=== PATIENT | male | born 1980 | race Caucasian/White ===

== ENCOUNTER 2018-11-20 18:12 | Emergency (ER) | payer OTHER ==
[~2018-11-20] VITALS: Ht 177.8 cm; Wt 138.3 kg
[~2018-11-20 18:12] MED LIST: BACTRIM DS TAB1 EACH PO; BENTYL 20 MG TA20 M1 PO; FIBER GUMMIES2.5 GM PO; HYDROCODONE-AP1 EAC6 PO; LIDODERM 5%1 PATC1 TOP; MEDROLDOSEPACK PO; NOHOMEMEDICATIONS; NORCO 5-325 TA1 EACH PO; SENOKOT-S1 TA1 PO; TRAMADOL 50 MG50 MG PO; XANAX 0.5 MG0.5 MG PO; ZANAFLEX4 MG PO
[2018-11-20 19:00] LABS: ABSOLUTE BASOPHILS 0.1 thou/uL (0.0-0.2); ABSOLUTE EOSINOPHILS 0.2 thou/uL (0.0-0.7); ABSOLUTE LYMPHOCYTES 2.6 thou/uL (0.8-5.3); ABSOLUTE MONOCYTES 0.7 thou/uL (0.0-1.2); ABSOLUTE NEUTROPHILS 9.3 thou/uL (1.6-8.1); BASOPHILS 1.1 %; EOSINOPHILS 1.5 %; HEMATOCRIT 44.6 % (42.0-52.0); HEMOGLOBIN 15.5 gm/dL (14.0-18.0); MCH 31.3 pg (26.0-34.0); MCHC 34.7 g/dL (28.0-37.0); MCV 90.2 fL (80.0-100.0); MONOCYTES 5.6 %; MPV 9.3 fl. (7.2-11.1); NUCLEATED RBCS 0 /100WBC; PLATELET COUNT* 384 thou/uL (150-400); POLYS 71.8 %; RBC 4.95 mil/uL (4.50-6.00); RDW-CV 13.1 % (10.5-14.5); WBC 12.9 thou/uL (4.0-11.0)
[2018-11-20 19:06] LABS: URINE BILIRUBIN NEGATIVE (Negative); URINE BLOOD NEGATIVE (Negative); URINE CLARITY CLEAR; URINE COLOR YELLOW; URINE GLUCOSE-RANDOM NEGATIVE (Negative); URINE KETONES NEGATIVE (Negative); URINE LEUKOCYTES-REFLEX NEGATIVE (Negative); URINE NITRITE-REFLEX NEGATIVE (Negative); URINE PROTEIN NEGATIVE (Negative); URINE SPECIFIC GRAVITY <= 1.005 (1.005-1.030); URINE UROBILINOGEN 0.2 E.U./dl (0.2-1.0)
[2018-11-20 19:11] LABS: ALBUMIN 3.6 g/dL (3.4-5.0); CALCIUM 9.1 mg/dL (8.5-10.1); POTASSIUM 3.9 mmol/L (3.5-5.1); TOTAL BILIRUBIN 0.3 mg/dL (<0.1-1.0); TOTAL PROTEIN 8.1 g/dL (6.4-8.2)
[2018-11-20] MEDS ORDERED: NORCO 5-325 TA1 EACH PO (20:32)
[2018-11-20 20:45] VITALS: BP 176/103
== END 2018-11-20 20:46 | disposition home or self-care (01) ==
LOC: M.ERS 18:12
PROVIDERS: Physician Assistant
DX: R10.32 Left lower quadrant pain (principal); R10.84 Generalized abdominal pain; K62.89 Other specified diseases of anus and rectum; F31.9 Bipolar disorder, unspecified; K59.09 Other constipation; Z88.5 Allergy status to narcotic agent

== ENCOUNTER 2018-12-12 16:03 | Inpatient (IN) | payer OTHER ==
[~2018-12-12] VITALS: Ht 177.8 cm; Wt 127.9 kg
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
[2018-12-12 16:15] VITALS: BP 150/105
[2018-12-12 16:42] LABS: ABSOLUTE BASOPHILS 0.1 thou/uL (0.0-0.2); ABSOLUTE EOSINOPHILS 0.3 thou/uL (0.0-0.7); ABSOLUTE MONOCYTES 1.3 thou/uL (0.0-1.2); ABSOLUTE NEUTROPHILS 11.9 thou/uL (1.6-8.1); BASOPHILS 0.3 %; EOSINOPHILS 2.1 %; HEMATOCRIT 44.1 % (42.0-52.0); HEMOGLOBIN 14.9 gm/dL (14.0-18.0); LYMPHOCYTES 12.7 %; MCH 30.3 pg (26.0-34.0); MCHC 33.7 g/dL (28.0-37.0); MCV 89.9 fL (80.0-100.0); MONOCYTES 8.4 %; MPV 9.1 fl. (7.2-11.1); NUCLEATED RBCS 0 /100WBC; PLATELET COUNT* 451 thou/uL (150-400); POLYS 76.5 %; RDW-CV 13.3 % (10.5-14.5); WBC 15.6 thou/uL (4.0-11.0)
[2018-12-12 16:55] LABS: ALBUMIN 3.3 g/dL (3.4-5.0); CALCIUM 9.3 mg/dL (8.5-10.1); CREATININE 1.1 mg/dL (0.6-1.3); POTASSIUM 4.3 mmol/L (3.5-5.1); TOTAL BILIRUBIN 0.6 mg/dL (<0.1-1.0); TOTAL PROTEIN 8.4 g/dL (6.4-8.2)
[2018-12-12 17:13] LABS: URINE BILIRUBIN NEGATIVE (Negative); URINE BLOOD NEGATIVE (Negative); URINE CLARITY CLEAR; URINE COLOR YELLOW; URINE GLUCOSE-RANDOM NEGATIVE (Negative); URINE KETONES NEGATIVE (Negative); URINE LEUKOCYTES-REFLEX NEGATIVE (Negative); URINE NITRITE-REFLEX NEGATIVE (Negative); URINE PROTEIN NEGATIVE (Negative); URINE SPECIFIC GRAVITY <= 1.005 (1.005-1.030); URINE UROBILINOGEN 0.2 E.U./dl (0.2-1.0)
[2018-12-12 20:09] VITALS: BP 126/64
[2018-12-12 20:20] VITALS: BP 134/78
[2018-12-13 00:51] VITALS: BP 115/67
[2018-12-13 03:06] VITALS: BP 114/66
[2018-12-13 04:20] LABS: HEMATOCRIT 37.1 % (42.0-52.0); MCH 30.2 pg (26.0-34.0); MCHC 33.2 g/dL (28.0-37.0); MCV 90.8 fL (80.0-100.0); MPV 8.8 fl. (7.2-11.1); RBC 4.08 mil/uL (4.50-6.00)
--- NOTE | 2018-12-13 04:29 | NUR ---
RECEIVED REPORT AND ASSUMED CARE OF PATIENT FROM ER AT APPROX 2009. RECORD MAKER APPLIED AND TRACING SR. ADMISSION HISTORY AND ASSESSMENT COMPLETED CHARTED, VSS ON ROOM AIR. PATIENT HAS PERIRECTAL CELLITIS, PICTURES TAKEN AND WOUND CONSULT PLACED. PATIENT HAS C/O PAIN IN PERIRECTAL AREA. GOAL OF EFFECTIVE PAIN MANAGEMENT HAS BEEN PARTIALLY MET. PAIN PARTIALLY RELIEVED WITH MEDICATION PER MAR, ICE PACKS, AND REPOSITIONING. NPO FOR SURGERY CONSULT. PATIENT AWARE AND VERBALIZES UNDERSTANDING. CALL LIGHT WITHIN REACH.
[2018-12-13 04:48] LABS: ALBUMIN 2.4 g/dL (3.4-5.0); CALCIUM 8.1 mg/dL (8.5-10.1); HEMOGLOBIN 12.3 gm/dL (14.0-18.0); MAGNESIUM 1.9 mg/dL (1.8-2.4); POTASSIUM 4.2 mmol/L (3.5-5.1); TOTAL BILIRUBIN 0.3 mg/dL (<0.1-1.0); TOTAL PROTEIN 6.4 g/dL (6.4-8.2)
[2018-12-13 07:30] VITALS: BP 106/60
--- NOTE | 2018-12-13 10:22 | EKG ---
[place] [address] ELECTROCARDIOGRAM REPORT Name: MARK GOULD Room: [address] ADM IN .R.#: [id number] Admission: 12/12/18 Attend Phys: Cheyenne Stokes MD Discharge: Date of : 82 Report #: [id number] THIS REPORT FOR: //name// [facility] ED Test Date: 2018-12-12 Test Time: 18:11:06 Pat Name: MARK GOULD Department: Room: [facility] Gender: M [employer]: : 1980 Requested By: Clarence Joya Order Number: [id number] MD: Paresh Salazar Measurements Intervals [place] Rate: 97 P: 48 W[place]: 164 QRS: 27 QRSD: 85 T: 22 QT: 323 QTc: 411 Interpretive Statements Sinus rhythm Compared to ECG 02/02/2016 22:45:04 Sinus tachycardia no longer present Electronically Signed On 12-13-2018 10:21:50 CDT by Paresh Salazar [email or web address] <ELECTRONICALLY SIGNED> By: Paresh Salazar MD, [facility] 12/13/18 1021 10 10 Paresh Salazar MD, FAC /EPI
--- NOTE | 2018-12-13 11:57 | NUR ---
Pt is A&O. Resides at home with his and dtr. Active and independent. Pt stated that he had [place] TYS[place], but it has lapsed, has faxed updated info to [facility] to attempt to get it reinstated. No DME. No hx of HH or SNF. Goal is home at [place]. Following.
[2018-12-13 12:02] VITALS: BP 121/64
[2018-12-13] MEDS ORDERED: PROCTOFOAM-HC F10 GM TOP (12:32)
[2018-12-13 13:09] LABS: AMP/METHAMP Negative (Negative); BARBITURATES Negative (Negative); BENZODIAZEPINES Negative (Negative); COCAINE Negative (Negative); METHADONE Negative (Negative); OPIATES POSITIVE (Negative); PCP Negative (Negative); THC POSITIVE (Negative)
[2018-12-13 15:23] VITALS: BP 120/65
[2018-12-13 20:00] VITALS: BP 144/83
--- NOTE | 2018-12-13 23:30 | NUR ---
RECEIVED REPORT AND ASSUMED CARE OF PATIENT AT APPROX 1930. ASSESSMENT AND VITAL COMPLETED CHARTED, VSS. PATIENT A&OX4. C/O PAIN IN RECTAL AREA WHERE CELLULITIS IS. PAIN PARTIALLY RELIEF WITH MEDS PER MAR, COLD, AND REPOSITIONING. ONE SET OF BLOOD CULTURES BACK WITH GRAM POSITIVE COCCI. RESULTS CALLED TO INFECTIOUS DISEASE ANSWERING SERVICE. NO CALL BACK OR ORDERS RECIEVED AT THIS TIME. VANCOMYCIN INCREASED PER PHARMACY FOR LOW TROUGH AND FEVERS THIS EVENING. FEVER TREATED WITH ACETAMINOPHEN. PATIENT TRANSPORTED TO ORTHO UNIT VIA BED WITH ALL BELONGINGS. REPORT GIVEN TO RECEIVING RN.
[2018-12-14 00:30] VITALS: BP 118/61
[2018-12-14 04:17] LABS: HEMATOCRIT 35.6 % (42.0-52.0); HEMOGLOBIN 12.1 gm/dL (14.0-18.0); MCH 30.3 pg (26.0-34.0); MCHC 33.9 g/dL (28.0-37.0); MCV 89.2 fL (80.0-100.0); MPV 8.9 fl. (7.2-11.1); NUCLEATED RBCS 0 /100WBC; PLATELET COUNT* 328 thou/uL (150-400); RBC 3.99 mil/uL (4.50-6.00); RDW-CV 12.8 % (10.5-14.5); WBC 14.4 thou/uL (4.0-11.0)
[2018-12-14 04:37] LABS: CALCIUM 8.1 mg/dL (8.5-10.1); CREATININE 0.9 mg/dL (0.6-1.3)
--- NOTE | 2018-12-14 05:19 | NUR ---
REPORT RECIEVED FROM ROSIBEL ALBERTO, PT MOVED TO ROOM 102 AT 2300. CHARTING REVIEW, I AGREE WITH ROSIBEL ALBERTO'S DOCUMENTATION. PT SLEPT ON AND OFF THIS SHIFT. PAIN AND NAUSEA MEDS GIVEN PER E-OCT. IV'S PATENT, FLUIDS INFUSING. WILL CONTINUE WITH PLAN OF CARE.
[2018-12-14 06:23] LABS: ABSOLUTE EOSINOPHILS 0.1 thou/uL (0.0-0.7); ABSOLUTE LYMPHOCYTES 1.2 thou/uL (0.8-5.3); ABSOLUTE NEUTROPHILS 11.1 thou/uL (1.6-8.1); ANISOCYTOSIS 1+; PLATELET ESTIMATE ADEQUATE; POIKILOCYTOSIS 1+
[2018-12-14 08:00] VITALS: BP 141/72
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
--- NOTE | 2018-12-14 13:01 | NUR ---
WOUND CARE NOTE: CONSULT RECEIVED FOR PERIRECTAL CELLULITIS. WILL DEFER ASSESSMENT AT THIS TIME, APPEARS THAT SURGICAL INTERVENTION IS PLANNED. PLEASE NOTIFY IF ANYTHING IS NEEDED IN THE INTERIM.
[2018-12-14 17:03] VITALS: BP 130/62
--- NOTE | 2018-12-14 18:02 | NUR ---
PATIENT IS ALERT AND ORIENTED X 4. IVF LAC INFUSING @ 100 MLS/HR. IV SITE RAC-PATENT. NPO FOR SURGICAL PROCEDURE FOR GLUTEAL ABSCESS. COLOSTOMY WITH MINIMAL STOOL OUTPUT NOTED. CONSULT WITH GI IN AM. PT TO PROCEDURE BY BED @ 1245. RETURNED TO UNIT @ 1500. PT DID NOT WANT TO HAVE LAXITIVE MEDICATION TODAY FOR COLOSTOMY AFTER SURGICAL PROCEDURE. PAIN MANAGED WITH IV FENTANYL DURING SHIFT. GAUZE AND ABD PAD CHANGED @ 1745 DUE TO FOUL SMELLING SEROSANGUINEOUS DRAINAGE PRESENT. HOURLY ROUNDS MAINTAINED. SPOUSE @ BEDSIDE. CALL LIGHT WITHIN REACH.
[2018-12-14 20:30] VITALS: BP 134/71
[2018-12-15] VITALS: BP 143/94
[2018-12-15 04:00] VITALS: BP 127/83
--- NOTE | 2018-12-15 05:42 | NUR ---
PT SLEPT ON AND OFF THIS SHIFT. ASSESSMENT DOCUMENTED. MEDS GIVEN PER -OCT. IV'S PATENT, ABX INFUSED. PAIN MEDS GIVEN PER E-OCT. GAUZE OVER THANG AREA INCISION CHANGED SEVERAL TIMES THIS SHIFT, PACKING REMAINING IN PLACE. PT C/O SWEATING A LOT AND FEELING COLD AND CLAMMY, NO FEVER NOTED; SHEETS, BLANKETS, AND PILLOW CASES CHANGED THIS SHIFT D/T SWEATING. BLOOD SUGAR CHECKED, PT STATES HE DOES NOT DRINK, WILL CONTINUE TO MONITOR FOR OTHER SYMPTOMS. NO REPORTS OF NAUSEA THIS SHIFT. WILL CONTINUE WITH PLAN OF CARE.
[2018-12-15 08:50] VITALS: BP 109/66
[2018-12-15 11:47] LABS: HEMATOCRIT 37.2 % (42.0-52.0); HEMOGLOBIN 12.3 gm/dL (14.0-18.0); MCH 29.9 pg (26.0-34.0); MCHC 33.1 g/dL (28.0-37.0); MCV 90.3 fL (80.0-100.0); MPV 9.5 fl. (7.2-11.1); RBC 4.12 mil/uL (4.50-6.00); WBC 14.2 thou/uL (4.0-11.0)
[2018-12-15 11:59] LABS: POTASSIUM 3.7 mmol/L (3.5-5.1)
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
[2018-12-15 15:43] VITALS: BP 144/95
--- NOTE | 2018-12-15 16:08 | NUR ---
PATIENT REPOSITIONED IN BED, 4X4'S TO PERORECTAL ABCESS CHANGED X 2 THIS SHIFT DUE TO SOILING. PRN FENTANYL, TORADOL, AND VICODIN GIVEN FOR PAIN ORDERED. VOIDING PER URINAL. PER SURGERY MAG CITRATE ORDERED, PRIOR TO GIVING PATIENT HAD A VERY LARGE FORMED STOOL VIA COLOSTOMY, SO PATIENT IS REFUSING MAG CITRATE. PAGE PLACED TO DR. MOY, AWAITING CALL BACK. 2ND IV STARTED TO RIGHT FOREARM BY SOCIAL WELFARE CLERK, PATIENT ON MULT ABX. PATIENT DID GET OUT OF BED AND STAND UP AT BEDSIDE, REFUSING TO SIT IN RECLINER. PATIENT ALSO REFUSING SCD'S, EDUCATION GIVEN.
[2018-12-15 21:20] VITALS: BP 132/75
[2018-12-16 03:56] LABS: HEMATOCRIT 34.6 % (42.0-52.0); HEMOGLOBIN 11.6 gm/dL (14.0-18.0); MCH 30.1 pg (26.0-34.0); MCHC 33.4 g/dL (28.0-37.0); MPV 9.1 fl. (7.2-11.1); RBC 3.84 mil/uL (4.50-6.00); RDW-CV 13.1 % (10.5-14.5); WBC 14.4 thou/uL (4.0-11.0)
[2018-12-16 04:00] VITALS: BP 108/64
[2018-12-16 04:23] LABS: CALCIUM 8.2 mg/dL (8.5-10.1); MAGNESIUM 2.2 mg/dL (1.8-2.4); PHOSPHORUS* 3.4 mg/dL (2.5-4.9); POTASSIUM 3.8 mmol/L (3.5-5.1)
--- NOTE | 2018-12-16 06:50 | NUR ---
PATIENT HAS SLEPT OFF AND ON DURING THE NIGHT. VSS ON RA. MEDICATIONS GIVEN ORDERED AND CHARTED. PATIENT REFUSED TO HAVE PACKING CHANGED DURING THE SHIFT AND STATED THAT IT WAS CHANGED YESTERDAY AND HE FELT IT WAS STILL FINE AT THIS TIME. COLOSTOMY INTACT WITH SMALL AMOUNT OF STOOL. IV IN RIGHT FOREARM-SL. IV ABT'S GIVEN WITHOUT ANY ADVERSE SIDE EFFECTS NOTED. PATIENT INSTRUCTED TO USE CALL LIGHT WHEN NEEDING ASSISTANCE. HOURLY ROUNDS MADE. WILL CONTINUE WITH PLAN OF CARE AND NURSING TO MONITOR.
[2018-12-16 07:20] VITALS: BP 121/75
--- NOTE | 2018-12-16 16:06 | NUR ---
PATIENT UP AND SHOWERED THIS AM. PACKING WAS REPLACED BY SURGERY THIS AM. PRN FENTANYL/TORADOL/VICODIN GIVEN FOR PAIN. PATIENT UP AMBULATING IN THE HALLS MULTIPLE TIMES TODAY, FAIR ENDURANCE NOTED. IV RESTARTED TO LEFT FOREARM, SCHED ABX INFUSING ORDERED. COLOSTOMY APPLIANCE CHANGED THIS AFTERNOON, NOTED TO BE LEAKING. PATIENT HERE THIS EVENING.
[2018-12-16 16:44] VITALS: BP 116/63
[2018-12-16 20:00] VITALS: BP 140/79
[2018-12-17 04:16] LABS: HEMATOCRIT 34.9 % (42.0-52.0); HEMOGLOBIN 11.8 gm/dL (14.0-18.0); MCH 30.4 pg (26.0-34.0); MCHC 33.9 g/dL (28.0-37.0); MCV 89.7 fL (80.0-100.0); RBC 3.89 mil/uL (4.50-6.00); RDW-CV 13.2 % (10.5-14.5); WBC 11.5 thou/uL (4.0-11.0)
[2018-12-17 04:37] LABS: CALCIUM 8.3 mg/dL (8.5-10.1); CREATININE 1.4 mg/dL (0.6-1.3); POTASSIUM 3.9 mmol/L (3.5-5.1)
--- NOTE | 2018-12-17 06:01 | NUR ---
PATIENT HAS SLEPT WELL THROUGHOUT MOST OF THE NIGHT. VSS ON RA. PAIN CONTROLLED WITH IV AND ORAL PAIN MEDICATIONS AND CHARTED. PATIENT HAS BEEN UP AMBULATING SOME DURING THE SHIFT. COLOSTOMY INTACT. DRESSING TO PERIRECTAL AREA IN PLACE WITH SMALL AMOUNT OF DRAINAGE NOTED. IV IN LEFT FOREARM-SL. IV ABT'S GIVEN ORDERED AND NO ADVERSE SIDE EFFECTS NOTED. PATIENT HAS REMAINED A-FEBRILE. PATIENT INSTRUCTED TO USE CALL LIGHT WHEN NEEDING ASSISTANCE. HOURLY ROUNDS MADE. WILL CONTINUE WITH PLAN OF CARE AND NURSING TO MONITOR.
[2018-12-17 07:45] VITALS: BP 121/85
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
--- NOTE | 2018-12-17 14:48 | NUR ---
FAXED FACE SHEET TO JAMES[facility]BART PINA TO SEE IF SHE COULD CHECK WITH [place] MEDICAID TO SEE IF PT.S [place] MEDICAID IS ACTIVE. PTS SENT IN PAPER WORK TO GET PTS MEDICAID REINSTATED.
[2018-12-17 16:15] VITALS: BP 132/78
--- NOTE | 2018-12-17 16:24 | NUR ---
PATIENT UP TO SHOWER THIS EVENING, SURGERY HERE TO CHANGE PACKING. PRN VICODIN GIVEN X 2 THIS SHIFT. IV ABX INFUSED ORDERED, MALINDA FROM INFUSION HERE THIS EVENING TO START IV, PLACED IN RIGHT FOREARM. PATIENT C/O PAIN IN PREVIOUS IV SITE. UP AMBULATING AROUND ROOM AND IN HALLS FREQUENTLY. AWAITING WOUND CULTURES.
[2018-12-17 20:00] VITALS: BP 138/79
[2018-12-18 07:18] LABS: HEMATOCRIT 33.4 % (42.0-52.0); HEMOGLOBIN 11.2 gm/dL (14.0-18.0); MCH 30.1 pg (26.0-34.0); MCHC 33.5 g/dL (28.0-37.0); MCV 89.8 fL (80.0-100.0); MPV 8.4 fl. (7.2-11.1); RBC 3.72 mil/uL (4.50-6.00); RDW-CV 13.2 % (10.5-14.5); WBC 10.2 thou/uL (4.0-11.0)
[2018-12-18 07:27] LABS: CALCIUM 8.3 mg/dL (8.5-10.1); CREATININE 1.4 mg/dL (0.6-1.3); POTASSIUM 3.8 mmol/L (3.5-5.1)
--- NOTE | 2018-12-18 07:32 | NUR ---
Alert and oriented x 4. He has been cooperative. He did have 4x4's on outer dressing to rectum changed x 1. He has had 1 hydrocodone for pain x 3 this shift. He is up independently to the bathroom, he is doing his own colostomy care. IV in his rt forearm is working well. He has had some sleep this morning hours.
[2018-12-18 07:45] VITALS: BP 120/64
[2018-12-18 10:11] VITALS: BP 120/64
[2018-12-18] MEDS ORDERED: NORCO 5-325 TA1 EACH PO (10:52)
[2018-12-18] MEDS ORDERED: AUGMENTIN 875-1 EACH PO (10:53)
[2018-12-18 10:56] VITALS: BP 120/64
--- NOTE | 2018-12-18 11:22 | NUR ---
PT GIVEN DISCHARGE INFORMATION, CARE NOTES, AND PRESCRIPTIONS. ORAL ZOFREN PRESCRIPTION CALLED INTO [facility]. PT STAN REMOVED. PT'S SHOWN AND VERBAILIZES UNDERSTANDING FOR DRESSING CHANGES AND PACKING. MATERIALS GIVEN TO HELP WITH DRESSING CHANGES PATIENT DOES NOT HAVE HEALTH INSURANCE. PT STATED THEY WANTED TO SPEAK WITH CASE MANAGEMENT BUT HAD CHANGED THEIR MINDS AND WANTED TO LEAVE. PT LEFT VIA WHEELCHAIR WITH NURSING STAFF TO HOME WITH SPOUSE. FALL RISK PRECAUTIONS IN PLACE. HOURLY ROUNDING COMPLETED.
[2018-12-18 11:25] VITALS: BP 120/64
== END 2018-12-18 11:34 | disposition home or self-care (01) | DRG 854 ==
LOC: M.ERS 16:03 → M.2W 18:28 → M.TBA-ER 18:28 → M.2W 19:27 → M.ORTHSURG 12-13 23:13
PROVIDERS: Internal Medicine; Physician Assistant; Surgery; ADMIT Internal Medicine
PROC: 0D9P0ZZ Drainage of Rectum, Open Approach (ICD-10-PCS; principal; 2018-12-14)
DX: A41.9 Sepsis, unspecified organism (principal); L03.317 Cellulitis of buttock; K61.1 Rectal abscess; K59.09 Other constipation; F31.9 Bipolar disorder, unspecified; K62.89 Other specified diseases of anus and rectum; F17.210 Nicotine dependence, cigarettes, uncomplicated; Z88.5 Allergy status to narcotic agent